=== PATIENT | female | born 1985 | race African-American/Black ===

== ENCOUNTER 2019-07-03 23:43 | Emergency (ER) | payer SELFPAY ==
[~2019-07-03] VITALS: Ht 177.8 cm; Wt 92.0 kg
[2019-07-04] MEDS ORDERED: LIDOCAINE HCL/PF 1% 10 MG/ML 5ML VIAL IJ ONE (02:15)
[2019-07-04] MEDS ORDERED: BACITRACIN ZINC OINT UDPKT TOP ONE (02:15)
[2019-07-04] MEDS ORDERED: TETANUS, DIPHTHERIA, PERTUSSIS VAC/PF 0.5ML (>7YR OLD) IM ONE (02:15)
[2019-07-04 05:19] VITALS: BP 145/78
== END 2019-07-04 05:20 | disposition home or self-care (01) ==
LOC: EDSEX → ER 23:43
DX: S41.111A Laceration without foreign body of right upper arm, initial encounter (principal); W20.8XXA Other cause of strike by thrown, projected or falling object, initial encounter; Y93.89 Activity, other specified; Y92.89 Other specified places as the place of occurrence of the external cause; Y99.8 Other external cause status
CPT/HCPCS: 13121; 13122; 73090; 90471; 90715; 99285; J3490; 13133

== ENCOUNTER 2019-07-07 04:11 | Emergency (ER) | payer MEDICAID ==
[~2019-07-07] VITALS: Ht 165.1 cm; Wt 109.0 kg
[2019-07-07 05:35] VITALS: BP 144/74
[2019-07-07] MEDS ORDERED: BACITRACIN 15GM TUBE TOP ONE (06:00)
== END 2019-07-07 06:15 | disposition home or self-care (01) ==
LOC: EDSEX → ER 04:11
DX: Z48.00 Encounter for change or removal of nonsurgical wound dressing (principal); R03.0 Elevated blood-pressure reading, without diagnosis of hypertension
CPT/HCPCS: 99282

== ENCOUNTER 2019-07-09 05:38 | Emergency (ER) | payer MEDICAID ==
[~2019-07-09] VITALS: Ht 170.2 cm; Wt 98.0 kg
[2019-07-09 05:47] VITALS: BP 159/90
== END 2019-07-09 06:43 | disposition home or self-care (01) ==
LOC: ER 06:13
DX: S61.411D Laceration without foreign body of right hand, subsequent encounter (principal); X58.XXXD Exposure to other specified factors, subsequent encounter
CPT/HCPCS: 99282

== ENCOUNTER 2019-07-17 06:07 | Emergency (ER) | payer MEDICAID ==
[~2019-07-17] VITALS: Ht 172.7 cm; Wt 98.0 kg
[2019-07-17 07:45] VITALS: BP 150/77
== END 2019-07-17 07:46 | disposition home or self-care (01) ==
LOC: ER 06:07
DX: Z48.02 Encounter for removal of sutures (principal)
CPT/HCPCS: 99281; Z7610